=== PATIENT | male | born 2000 | race African-American/Black ===

== ENCOUNTER 2024-04-15 19:24 | Emergency (ER) | payer SELFPAY ==
[2024-04-15 19:27] VITALS: BP 142/93; PULSE 93; RESP 16; TEMP 36.8; O2SAT 99; BMI 24.9
--- NOTE | 2024-04-15 21:06 | ED.RN ---
Dr Goodman went in to see pt, pt not in room.
--- NOTE | 2024-04-15 21:07 | ED.RN ---
Patient noted to be missing from room. Wet socks noted to be left on floor. Patient, pants, shoes, backpack and belongings noted to be gone also.
== END 2024-04-15 21:00 | disposition left against medical advice (07) ==
DX: Z04.1 Encounter for examination and observation following transport accident (principal)
CPT/HCPCS: 99284

== ENCOUNTER 2024-04-15 21:38 | Emergency (ER) | payer SELFPAY ==
[2024-04-15 21:41] VITALS: BP 130/103; PULSE 93; RESP 16; TEMP 36.6; O2SAT 98; BMI 24.7
--- NOTE | 2024-04-15 22:29 | RAD_ITS ---
STUDY: X-RAY - PELVIS REASON FOR EXAM: Male, 23 years old. Injury/Pain TECHNIQUE: One view of the pelvis was obtained. COMPARISON: None. FINDINGS: There is a non-specific bowel gas pattern. Normal visualized soft tissue structures. Normal bilateral iliac wings, sacroiliac joints and visualized sacrum. Normal visualized bilateral superior and inferior pubic rami. Normal pubic symphysis. Normal ischial tuberosities. Normal visualized right femoral head. Normal right acetabulum. Normal right hip joint. Normal visualized left femoral head. Normal left acetabulum. Normal left hip joint. RAD/Pelvis 1 or 2 Views IMPRESSION: Normal x-ray examination of the pelvis. Electronically Signed: Chu Lee MD at 23:03 EST ,
--- NOTE | 2024-04-15 22:29 | RAD_ITS ---
STUDY: X-RAY - SACRUM/COCCYX REASON FOR EXAM: Male, 23 years old. pain, fall TECHNIQUE: 3 view(s) of the sacrum and coccyx were obtained. COMPARISON: None. FINDINGS: Normal bilateral sacroiliac joints. Acute transverse fracture of the distal aspect of the sacrum. Normal sacrococcygeal junction with a normal angulation. Normal coccygeal segments. The presacral soft tissue structures are unremarkable. RAD/Sacrum-Coccyx min 2 Views IMPRESSION: Acute transverse fractures of the distal sacrum. Electronically Signed: Chu Lee MD at 23:04 [facility] ,
--- NOTE | 2024-04-15 22:30 | RAD_ITS ---
STUDY: X-RAY - RIGHT FEMUR REASON FOR STUDY: Male, 23 years old. Injury/Pain TECHNIQUE: 2 view(s) of the femur. COMPARISON: None. FINDINGS: Normal visualized femur. Normal visualized soft tissue structure. RAD/Femur Min 2 Views IMPRESSION: Normal x-ray examination of the femur. Electronically Signed: Chu Lee MD at 23:04 EST ,
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
--- NOTE | 2024-04-15 22:46 | RAD_ITS ---
STUDY: X-RAY - RIGHT KNEE REASON FOR EXAM: Male, 23 years old. Injury/Pain TECHNIQUE: 4 view(s) of the knee. COMPARISON: None. FINDINGS: Normal visualized distal femur. Normal visualized proximal tibia and fibula. Normal proximal tibiofibular articulation. Normal medial femorotibial compartment. Normal lateral femorotibial compartment. Normal patellofemoral articulation. The soft tissue structures are unremarkable. RAD/Knee 4 or More Views IMPRESSION: Normal x-ray examination of the knee. Electronically Signed: Chu Lee MD at 23:03 EST ,
[2024-04-15] MEDS: Acetaminophen 325 MG Tablet 650 MG PO (23:30)
[2024-04-16] MEDS: HYDROcodone Bitartrate/Apap 5/325 Tablet PO (00:53)
== END 2024-04-16 01:02 | disposition home or self-care (01) ==
PROVIDERS: Emergency Provider Emergency Medicine; Visit Provider Emergency Medicine
DX: S32.10XA Unspecified fracture of sacrum, initial encounter for closed fracture (principal); V19.3XXA Pedal cyclist (driver) (passenger) injured in unspecified nontraffic accident, initial encounter; I10 Essential (primary) hypertension; F17.210 Nicotine dependence, cigarettes, uncomplicated; M54.9 Dorsalgia, unspecified; F32.A Depression, unspecified; F41.9 Anxiety disorder, unspecified
CPT/HCPCS: 72170; 72220; 73552; 73564; 99284

== ENCOUNTER 2024-12-15 21:18 | Emergency (ER) | payer MEDICAID, SELFPAY ==
[2024-12-15 21:20] VITALS: BP 141/83; PULSE 88; RESP 16; TEMP 36.7; O2SAT 100; BMI 25.4
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
--- NOTE | 2024-12-15 22:30 | RAD_ITS ---
PROCEDURE: CHEST PA AND LATERAL 12/15/2024 REASON FOR EXAM: COUGH TECHNIQUE: Procedure Code: RADCXR Modality: DX Procedure: CHEST PA AND LATERAL COMPARISON: None. FINDINGS: Lungs/Pleura: Clear. No airspace consolidation, pneumothorax or pleural effusion. Heart/Mediastinum: Normal in size. No vascular congestion. Bones/Soft tissues: Unremarkable. RAD/Chest PA and Lateral IMPRESSION: No acute pulmonary disease. Reading Location: [id number]
[2024-12-15 23:19] VITALS: BP 132/82; PULSE 71; RESP 16; O2SAT 98
--- NOTE | 2024-12-15 23:38 | EDS_ITS ---
HPI History of Present Illness Chief Complaint: Cold Sx Informant: patient Narrative Narrative: Patient is a 24-year-old male with past medical history of hypertension as well as anxiety and depression. He states for 2 weeks she has had nasal congestion and cough. He reports his symptoms are not improving and he is concerned he may have developed an infection and secondary to this comes in for evaluation. [facility] Medical History Hypertension Depression Anxiety Home Medications ?Medication ?Instructions ?Recorded ?Last Taken ?Type clonidine HCl 0.1 mg tablet 0.1 mg PO Q12H PRN hyperte nsion 04/15/24 Unknown History quetiapine 100 mg tablet (Seroquel) 150 mg PO QHS depr ession 04/15/24 Unknown History trazodone 50 mg tablet 75 mg PO QHS PRN insomnia Unknown History hydrocodone-acetaminophen 5-325mg 1 tab PO Q8H PRN gina n 3 days #10 04/16/24 Unknown Rx 5mg-325mg tabs polyethylene glycol 3350 17 17 g PO DAILY #119 grams 0 04/16/24 Unknown Rx gram/dose oral powder (Miralax) azelastine 137 mcg (0.1 %) nasal 2 spray intranasal BI D #30 mL 12/15/24 Unknown Rx spray benzonatate 100 mg capsule 200 mg (2 x 100 mg) PO TID PRN 12/15/24 Unknown Rx cough #60 caps prednisone 20 mg tablet 40 mg (2 x 20 mg) PO DAILY 7 days 12/15/24 Unknown Rx #14 tabs Allergy/AdvReac Type Severity Reaction Status Date / Time ibuprofen Allergy Severe Anaphylaxis Verified 12/15/24 21:22 Social History Smoking Status: Current every day smoker tobacco type: e-cigarettes ROS ROS ED Constitutional Constitutional ED: Denies chills or fever(s) ENT ENT ED: Reports rhinorrhea; Denies ear pain or sore throat Cardiovascular Cardiovascular: Denies chest pain Respiratory/Chest Respiratory/Chest: Reports cough; Denies dyspnea Gastrointestinal Gastrointestinal: Denies abdominal pain, diarrhea, nausea or vomiting Musculoskeletal Musculoskeletal: Denies myalgias Integumentary Denies rash Neurologic Neurologic: Denies headache(s) Psychiatric Psychiatric: Reports anxiety and depression Hematologic/Lymphatic Hematologic/Lymphatic: Denies easy bleeding or easy bruising Allergic/Immunologic Allergic/Immunologic ED: Denies mouth swelling, tongue swelling or urticaria EXAM Physical Exam Const Vital Signs: 12/15/24 21:20 12/15/24 21:32 12/15/24 23:19 Temperature 98.0 F Temperature Source Temporal Pulse Rate 88 71 Respiratory Rate 16 16 Respiratory Effort Normal Respiratory Pattern Normal Blood Pressure 141/83 H 132/82 H Blood Pressure Mean 102 98 Pulse Ox 100 98 Oxygen Delivery Method Room Air Room Air Positive well nourished and well developed General Appearance ED: well developed; Negative for pallor HEENT HEENT Narrative: Normocephalic atraumatic No tongue or lip swelling no oral lesions no airway edema or compromise There is cobblestoning noted in the posterior pharynx consistent with sinus drainage; no secondary findings of infection Bilateral TMs are retracted without secondary changes to suggest infection Nasal mucosa is hyperemic and boggy with enlarged inferior nasal turbinates Eyes PERRL and EOMs intact bilaterally Neck supple and no JVD Resp normal respiratory effort and clear to auscultation bilaterally Resp Narrative: Breath sounds are slight diminished throughout but overall clear to auscultation with no signs of respiratory distress Cardio regular rate and regular rhythm Extremity normal to inspection Neuro oriented x3, CN's II-XII intact bilaterally and no sensory deficits noted Sensorium / Orientation: alert Motor Exam: strength 5/5 throughout Psych mental status grossly normal Skin no rashes or lesions noted General Skin Exam: Negative for jaundice or pallor MDM MDM MDM Narrative Medical decision making narrative: Patient arrived to the ER mildly hypertensive but has a past medical history of this and otherwise with stable vitals. Based on his report of cough and congestion for approximately 2 weeks there is concern that this is viral in nature such as COVID influenza or RSV or potentially developing pneumonia. Secondary to this a viral swab was obtained and chest x-ray. Viral swab was negative and chest x-ray revealed no acute lung pathology. This correlates he has a different viral infection such as rhinovirus or human metapneumovirus. However as he is not in respiratory distress or requiring supplemental oxygen there is no need for further workup or admission and is otherwise safe for discharge with symptomatic care. History & Record Review Discussion w/independent historian: Patient Radiography Diagnostic Testing: Clinical Impression(s) from Imaging Studies Chest X-Ray 12/15/24 22:30 IMPRESSION: No acute pulmonary disease. Reading Location: [facility] 2 view chest x-ray as interpreted by the emergency medicine physician reveals no acute infiltrate pneumothorax or pleural effusion Discharge Plan Triage Chief Complaint: Cold Sx ED Provider: Hi [facility] Dx/Rx/DC Orders Clinical Impression: Viral upper respiratory tract infection with cough, Hypertension, Anxiety and depression Instructions: ED URI, Viral, No Abx (Adult) Prescriptions: New prednisone 20 mg tablet 40 mg PO DAILY 7 Days Qty: 14 0RF azelastine 137 mcg (0.1 %) spray,non-aerosol 2 spray intranasal BID Qty: 30 0RF Rx Instructions: administer into each nostril benzonatate 100 mg capsule 200 mg PO TID PRN (Reason: cough) Qty: 60 0RF No Action hydrocodone-acetaminophen 5-325 mg tablet 1 tab PO Q8H PRN (Reason: pain) 3 Days Qty: 10 0RF polyethylene glycol 3350 [Miralax] 17 gram/dose powder 17 g PO DAILY Qty: 119 0RF quetiapine [Seroquel] 100 mg tablet 150 mg PO QHS trazodone 50 mg tablet 75 mg PO QHS PRN (Reason: insomnia) clonidine HCl 0.1 mg tablet 0.1 mg PO Q12H PRN (Reason: hypertension) Stand Alone Forms: ED Work / School Excuse Primary Care Provider: Care Physician,No Primary Referrals: Dominik Holder MD [Med Staff - Active Staff] - Care Physician,No Primary [Primary Care Provider] - Activity Restrictions/Additional Instructions: Your x-ray showed no sign of pneumonia and your test for COVID influenza and RSV was negative. This indicates your symptoms are related to an other type of virus such as rhinovirus/the common cold. Symptoms from this will last roughly 3 weeks. Take the prescribed medication as directed to help improve symptoms and return to the ER should you have any further concerns Print Language: Croatian Disposition Disposition: Home, Self Care Discharge Date/Time: 12/15/24 23:48
== END 2024-12-15 23:48 | disposition home or self-care (01) ==
PROVIDERS: Emergency Provider Emergency Medicine; Visit Provider Emergency Medicine
DX: J06.9 Acute upper respiratory infection, unspecified (principal); F32.A Depression, unspecified; I10 Essential (primary) hypertension; F41.9 Anxiety disorder, unspecified; F17.290 Nicotine dependence, other tobacco product, uncomplicated
CPT/HCPCS: 71046; 87631; 99282